=== PATIENT | male | born 2000 | race African-American/Black ===

== ENCOUNTER 2025-06-20 11:55 | Emergency (ER) | payer SELFPAY ==
[2025-06-20] MEDS ORDERED: Ketorolac Tromethamine 30 MG (1 mL) VIAL ONE (12:32)
[2025-06-20 13:03] LABS: Platelet Count 207 10x3/uL (150-450)
[2025-06-20 13:04] LABS: Hematocrit 41.2 % (38.8-50.0); Hemoglobin 13.3 g/dL (13.5-17.5); Mean Corpuscular Hemoglobin 23.0 pg (27.0-33.0); Mean Corpuscular Volume 71.3 fL (81.2-95.1); Red Blood Cell (RBC) Count 5.78 10x6/uL (4.32-5.72); White Blood Cell (WBC) Count 3.93 10x3/uL (3.5-10.5)
[2025-06-20 13:17] LABS: ALT (SGPT) 18 U/L (Less than 45); AST (SGOT) 21 U/L (11-34); Albumin 4.1 g/dL (3.1-4.5); Alkaline Phosphatase 49 U/L (40-110); Anion Gap 11 mmol/L (10-20); BUN (Urea Nitrogen) 9 mg/dL (8.9-20.6); Bilirubin, Total 1.0 mg/dL (0.3-1.2); Calc. Creatinine Clearance 0 mL/min (70-130); Calcium 8.5 mg/dL (7.8-10.44); Carbon Dioxide 26 mmol/L (22-29); Chloride 105 mmol/L (98-107); Globulin 2.8 g/dL (2.4-3.5); Glucose 96 mg/dL (70-105); Lipase 10 U/L (8-78); Potassium 3.9 mmol/L (3.5-5.1); Sodium 138 mmol/L (136-145)
[2025-06-20 13:55] LABS: Microcytosis SLIGHT = 6-15 cells (100X) (0-5/hpf)
[2025-06-20 13:56] LABS: MDiff Complete? YES; Platelet Adequacy Comment Appears Adequate
== END 2025-06-20 13:38 | disposition home or self-care (01) ==
LOC: CSHERS 11:55
DX: R10.9 Unspecified abdominal pain (principal); F17.290 Nicotine dependence, other tobacco product, uncomplicated
CPT/HCPCS: 36415; 80053; 83690; 85025; 96372; 99284; J1885